=== PATIENT | male | born 1995 | race Two or more races ===

== ENCOUNTER 2016-03-30 23:47 | Inpatient (IN) | payer MEDICAID ==
--- NOTE | 2016-03-31 00:25 | ED Physician Chart ---
Chief Complaint/HPI - Patient Information Date Seen:: 03/31/16 Time Seen:: 00:18 Chief Complaint:: abnormal labs History of Present Illness:: pt states he believes he is basically healthy w no danelle hx. At his Mom's insistence he had a visit w a new PMD Friday where he had a routine lab. his Dr called him today and advised he come in for lab redraw since his platelets were abnormally low. pt reports no personal or family hx of blood dyscrasias. His father had juvenile DM. he has noticed some easier than usual bruising of his left bicep recently w no recall of trauma. he has no CP nor sob. 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 pt denies any drugs or herbal medications. pt says he has had HTN noted before here in ED several times over the last year but he never followed up w PMD as he was advised to do until Friday when he saw new Dr....it is unclear why BP med wasnt started friday ...pt thinks BP was nrml then.. no neuro changes Allergies:: Allergies Allergy/AdvReac Type Severity Reaction Status Date / Time No Known Allergies Allergy Verified 03/02/16 21:05 Vitals:: Vital Signs - 8 hr 03/31/16 00:03 Temp 97.9 F HR 97 RR 19 BP 170/107 O2 Sat % 99 Historian:: Patient Review of Systems - Review of Systems General/Constitutional: No fever, No chills, No weight loss, No weakness, No diaphoresis, No edema, No loss of appetite Skin: No skin lesions, No rash, No bruising Head: No headache, No light-headedness Eyes: No loss of vision, No pain, No diplopia ENT: No earache, No nasal drainage, No sore throat, No tinnitus Neck: No neck pain, No swelling, No thyromegaly, No stiffness, No mass noted Cardio Vascular: No chest pain, No palpitations, No PND, No orthopnea, No edema Pulmonary: No SOB, No cough, No sputum, No wheezing GI: No nausea, No vomiting, No diarrhea, No pain, No melena, No hematochezia, No constipation, No hematemesis G/U: No dysuria, No frequency, No hematuria Musculoskeletal: No bone or joint pain, No back pain, No muscle pain Endocrine: No polyuria, No polydipsia Psychiatric: No prior psych history, No depression, No anxiety, No suicidal ideation Hematopoietic: Bruising, No lymphadenopathy Allergic/Immuno: No urticaria, No angioedema Neurological: No syncope, No focal symptoms, No weakness, No paresthesia, No headache, No seizure, No dizziness, No confusion, No vertigo Past Medical History - Past Medical History Past Medical History: No significant medical hx, HTN (untxd HTN...pt has been notified of this by our ED staff multiple times but didnt perceive it as a real problem since he felt ok) Social History: Non Smoker, Alcohol, No Drug Use, Other (here w his MOM who raised hm by herself) Medication: None Family Medical History - Family Member Mother History Unknown: Yes Name:: Father, Mother Living Status: Still Living Hx Family Coronary Artery Disease: No Hx Family Congestive Heart Failure: No Hx Family Hypertension: No Hx Family Stroke: No Hx Family Diabetes: Yes Physical Exam - Physical Examination General/Constitutional: Awake, Well-developed, well-nourished, Alert, No distress, GCS 15, Non-toxic appearing, Ambulatory Other Gen/Cons comments:: 1 cut on scalp from shaving (pt shaves head nrmlly) 1.5 inch diameter old bruise on left lat-mid humerous region pt is awake/alert and attentive in nad. seems to have nrml strength. moist oral mucosa. elevated BP noted.... Head: Atraumatic Eyes: Lids, conjuctiva normal, PERRL, EOMI Other Eyes comments:: no conjunctival pallor. moist oral mucosa. Skin: Nl inspection, No rash, Well hydrated, No lymphadenopathy ENMT: External ears, nose nl, Nasal exam nl, Lips, teeth, gums nl Neck: Nontender, Full ROM w/o pain, No JVD, No nuchal rigidity, No bruit, No mass, No stridor Respiratory: Nl effort/Exclusion, Clear to Auscultation, No Wheeze/Rhonchi/Rales Cardio Vascular: RRR, No murmur, gallop, rubs, NL S1 S2 GI: No tenderness/rebounding/guarding, No organomegaly, No hernia, Normal BS's, Nondistended, No mass/bruits, No McBurney tenderness : No CVA tenderness Extremities: No tenderness or effusion, Full ROM, normal strength in all extremities, No edema, Normal digits & nails Neuro/Psych: Alert/oriented, DTR's symmetric, Normal sensory exam, Normal motor strength, Judgement/insight normal, Mood normal, Normal gait, No focal deficits Misc: normal gait, Normal back, No paraspinal tenderness Labs/Radiology/EKG Results - Lab Results Results: Laboratory Tests 03/31/16 03/31/16 03/31/16 00:25 00:25 00:25 WBC 9.4 RBC 5.31 Hgb 15.5 Hct 44.4 MCV 83.5 MCH 29.2 MCHC Differential 34.9 RDW 12.0 Plt Count 32 L MPV 7.2 Band Neutrophils % 1 Neutrophils (Manual) 63 Lymphocytes 30 Monocytes 4 Eosinophils 2 Platelet Estimate DECREASED PLATELETS PT 10.0 INR 1.01 PTT (Actin FS) 32.2 Sodium 135 L Potassium 3.7 Chloride 106 Carbon Dioxide 25.3 Anion Gap 7.4 BUN 22 Creatinine 0.8 Est GFR ( Amer) > 60.0 Est GFR (Non-Af Amer) > 60.0 BUN/Creatinine Ratio 27.5 Glucose 109 H Calcium 8.9 Total Bilirubin 0.2 L AST 28 ALT 22 Alkaline Phosphatase 64 Total Protein 6.0 Albumin 3.6 L Globulin 2.4 Albumin/Globulin Ratio 1.5 Assessment - Assessment Critical Care Time: 70 Excludes all billable procedures: Yes This condition life threatening/high prob of deterioration: Yes Assessment/Comments:: pt w severe untxd HTN and thrombocytopenia...at EXTREME risk of a acute CVA. Interventions include lowering of BP and transfusion of plts.. ED Septic Shock - . Is Septic Shock (SBP<90, OR Lactate>4 mmol\L) present?: No - <6hrs of presentation: Vital Signs: Vital Signs - 8 hr 03/31/16 00:03 Temp 97.9 F HR 97 RR 19 BP 170/107 O2 Sat % 99 Reassessment (Disposition) - Reassessment Reassessment Condition:: Improved - Diagnosis Diagnosis:: 1 severe thrombocytopenia of unclear etiology with associated spontaneous bruising and microscopic hematuria 2 severe untreated HTN - Aftercare/Follow up Instructions Notes:: Dr Jacob was human resources compensation analyst but was unreachable so after several attempt staff contacted Dr Amaro who is admitting pt platelet transfusion was ordered. pt received catapres for sev HTN - Patient Disposition Admitted to:: Telemetry Condition at Disposition:: Critical, Improved ED Discharge Plan - Patient Disposition Admit/Discharge/Transfer: Acute Care w/in this hosp
[2016-03-31 00:38] LABS: HEMATOCRIT 44.4 % (39.0-49.0); HEMOGLOBIN 15.5 gm/dL (13.2-17.3); MEAN CELL VOLUME 83.5 fl (80-99); MEAN CORPUSCULAR HEMOGLOBIN 29.2 pg (26.0-30.0); MEAN CORPUSCULAR HGB CONC 34.9 pg (28.0-36.0); MEAN PLATELET VOLUME 7.2 fl; PLATELET COUNT 32 Th/cmm (150-400); RED BLOOD COUNT 5.31 Mil/cmm (4.30-5.70)
[2016-03-31 00:53] LABS: INR 1.01 (0.5-1.4)
[2016-03-31 00:55] LABS: ALB/GLOB RATIO 1.5 (1.0-1.8); ALKALINE PHOSPHATASE 64 U/L (34-104); ANION GAP 7.4 (7.0-16.0); BILIRUBIN,TOTAL 0.2 mg/dL (0.3-1.0); BUN - UREA NITROGEN 22 mg/dL (7-25); BUN/CREATININE RATIO 27.5; CALCIUM SERUM 8.9 mg/dL (8.6-10.3); CARBON DIOXIDE 25.3 mEq/L (21.0-31.0); CHLORIDE 106 mEq/L (98-107); CREATININE - SERUM 0.8 mg/dL (0.7-1.3); GLUCOSE 109 mg/dL (70-105); POTASSIUM SERUM 3.7 mEq/L (3.5-5.1); SGOT 28 U/L (13-39); SGPT/ALT 22 U/L (7-52); SODIUM SERUM 135 mEq/L (136-145)
[2016-03-31 00:59] LABS: BAND NEUTROPHILE 1 % (0-10); EOSINOPHIL 2 % (0-5); NEUTROPHILS 63 % (40-80); TOTAL CELLS COUNTED 100
[2016-03-31 01:00] LABS: PLATELET ESTIMATE DECREASED PLATELETS (NORMAL)
[2016-03-31 01:01] LABS: WHITE BLOOD COUNT 9.4 Th/cmm (4.8-10.8)
[2016-03-31 01:41] LABS: AMPHETAMINE URINE NEGATIVE (NEGATIVE); BARBITURATES URINE NEGATIVE (NEGATIVE)
[2016-03-31 01:42] LABS: URINE BILIRUBIN NEGATIVE (NEGATIVE); URINE BLOOD LARGE (NEGATIVE); URINE COLOR YELLOW; URINE GLUCOSE (UA) NEGATIVE (NEGATIVE); URINE KETONE NEGATIVE (NEGATIVE); URINE PROTEIN >300 mg/dL (NEGATIVE); URINE UROBILINOGEN 0.2 E.U./dL (0.2 - 1.0)
[2016-03-31 01:43] LABS: URINE BACTERIA OCCASIONAL /hpf (NONE SEEN); URINE EPITHELIAL CELLS OCCASIONAL /lpf (FEW); URINE WBC 0-2 /hpf (0-5)
[2016-03-31] MEDS ORDERED: Maalox 30 mL Cup PO PRN (11:24)
[2016-03-31] MEDS ORDERED: Ipratropium Neb 0.5 mg/2.5 mL UD IH PRN (11:24)
[2016-03-31] MEDS ORDERED: Albuterol Nebulizer 2.5mg/3mL IH PRN (11:24)
[2016-03-31] MEDS: D5-0.45NS 1,000 ML IV SCH (12:51)
[2016-04-01] MEDS: D5-0.45NS 1,000 ML IV SCH ×2 (00:04→10:27)
[2016-04-01 06:10] LABS: HEMATOCRIT 45.3 % (39.0-49.0); HEMOGLOBIN 15.7 gm/dL (13.2-17.3); MEAN CELL VOLUME 83.1 fl (80-99); MEAN CORPUSCULAR HEMOGLOBIN 28.7 pg (26.0-30.0); MEAN CORPUSCULAR HGB CONC 34.6 pg (28.0-36.0); MEAN PLATELET VOLUME 7.6 fl; RED BLOOD COUNT 5.46 Mil/cmm (4.30-5.70); WHITE BLOOD COUNT 10.1 Th/cmm (4.8-10.8)
[2016-04-01 06:40] LABS: PROTHROMBIN TIME (TEST) 9.9 SECONDS (9.5-11.5)
[2016-04-01 06:44] LABS: ALB/GLOB RATIO 1.4 (1.0-1.8); ALKALINE PHOSPHATASE 61 U/L (34-104); ANION GAP 1.2 (7.0-16.0); BILIRUBIN,DIRECT 0.13 mg/dL (0.0-0.2); BILIRUBIN,TOTAL 0.5 mg/dL (0.3-1.0); BUN - UREA NITROGEN 17 mg/dL (7-25); CARBON DIOXIDE 24.6 mEq/L (21.0-31.0); CHLORIDE 110 mEq/L (98-107); GLUCOSE 96 mg/dL (70-105); POTASSIUM SERUM 3.8 mEq/L (3.5-5.1); SGOT 31 U/L (13-39); SGPT/ALT 20 U/L (7-52); SODIUM SERUM 132 mEq/L (136-145)
[2016-04-01 08:13] LABS: TSH 2.2 uIU/ml (0.34-5.60)
[2016-04-01 10:22] LABS: PLATELET COUNT 21 Th/cmm (150-400)
[2016-04-01 10:28] LABS: BASOPHIL 1 % (0-3); EOSINOPHIL 2 % (0-5); NEUTROPHILS 37 % (40-80); TOTAL CELLS COUNTED 100
[2016-04-01 10:29] LABS: PLATELET ESTIMATE DECREASED PLATELETS (NORMAL); PLATELET MORPHOLOGY GIANT PLATELETS SEEN (NORMAL)
[2016-04-01] MEDS ORDERED: Dexamethasone Sodium Phos 4 mg/mL Vial IVP SCH (10:30)
--- NOTE | 2016-04-01 10:48 | History & Physical ---
CHIEF COMPLAINT: Abnormal labs with low platelets. HISTORY OF PRESENT ILLNESS: This is a 20-year-old male with no significant past medical history was admitted through the ER secondary to abnormal blood test with platelets of ____. The patient was seen at the clinic with ____. The patient denies any abnormal bleeding. No chest pain or shortness of breath. PAST MEDICAL HISTORY: As mentioned in the history of present illness. PAST SURGICAL HISTORY: ____. ALLERGIES: No known drug allergies. MEDICATIONS: ____. FAMILY HISTORY: ____. SOCIAL HISTORY: Smokes on occasions, drinks on occasions, uses marijuana, student, ____ single. REVIEW OF SYSTEMS: GENERAL: The patient denies ____. HEENT: No blurred vision. NECK: No neck pain. LUNGS: ____ COPD or asthma. HEART: The patient has ____. ABDOMEN: No nausea, vomiting or abdominal pain. GENITOURINARY: The patient denies increased frequency or dysuria. NEUROLOGIC: No headaches or seizures. PSYCHIATRIC: As stated above. PHYSICAL EXAMINATION: VITAL SIGNS: Blood pressure 134/____, respirations 18, pulse 67. GENERAL: Well-developed young male in no acute distress. NECK: Supple. No mass. LUNGS: Clear to auscultation. CARDIOVASCULAR: Heart regular rate and rhythm without appreciable murmurs. ABDOMEN: Soft and nontender. EXTREMITIES: No clubbing, cyanosis or edema. No petechia. NEUROLOGIC: Nonfocal. LABORATORY DATA: WBC 9.5, hemoglobin 15, platelets ____. Sodium ____, potassium 3.7, BUN ____, creatinine 0.8, blood sugar 108. ____ protein, 10 rbc's plus ____. ASSESSMENT: Acute thrombocytopenia, hyponatremia, proteinuria. PLAN: We will work the patient up for thrombocytopenia. Abdominal, liver, and spleen ultrasound will be ordered. We will refer the patient to Nephrology, avoid ____. JOB# [id number]
--- NOTE | 2016-04-01 10:59 | Diagnostic Imaging Report ---
Abdominal ultrasound HISTORY: Pain The liver exhibits a homogeneous parenchyma. No focal lesions. The gallbladder appears normal. No calculi are seen. No biliary dilatation. There is incomplete visualization of the pancreas due to bowel gas. The kidneys appear normal bilaterally. The spleen is normal in size (10.5 cm length). No other retroperitoneal or intra-abdominal abnormalities. IMPRESSION: Negative examination
[2016-04-01] MEDS ORDERED: Dexamethasone Sodium Phos 10 mg/mL PF Vial IVP SCH (11:15)
--- NOTE | 2016-04-01 12:28 | General Progress Note ---
Subjective - Review of Systems Service Date: 04/01/16 (NO COMPLAINTS) Events since last encounter: seen by hematology started on steroids Objective - Results Result Diagrams: 04/01/16 05:24 04/01/16 05:24 Recent Labs: Laboratory Last Values WBC 10.1 Th/cmm (4.8-10.8) 04/01/16 05:24 RBC 5.46 Mil/cmm (4.30-5.70) 04/01/16 05:24 Hgb 15.7 gm/dL (13.2-17.3) 04/01/16 05:24 Hct 45.3 % (39.0-49.0) 04/01/16 05:24 MCV 83.1 fl (80-99) 04/01/16 05:24 MCH 28.7 pg (26.0-30.0) 04/01/16 05:24 MCHC Differential 34.6 pg (28.0-36.0) 04/01/16 05:24 RDW 12.0 % (11.5-20.0) 04/01/16 05:24 Plt Count 21 Th/cmm (150-400) L* 04/01/16 05:24 MPV 7.6 fl 04/01/16 05:24 Band Neutrophils % 1 % (0-10) 03/31/16 00:25 Neutrophils (Manual) 37 % (40-80) L 04/01/16 05:24 Lymphocytes 44 % (20-50) 04/01/16 05:24 Monocytes 13 % (2-10) H 04/01/16 05:24 Eosinophils 2 % (0-5) 04/01/16 05:24 Basophils 1 % (0-3) 04/01/16 05:24 Atypical Lymphocytes 3 % 04/01/16 05:24 Platelet Estimate DECREASED PLATELETS (NORMAL) 04/01/16 05:24 Platelet Morphology GIANT PLATELETS SEEN (NORMAL) 04/01/16 05:24 RBC Morph Micro Appear NORMAL (NORMAL) 04/01/16 05:24 ESR 8 mm/hr (0-20) 04/01/16 05:24 PT 9.9 SECONDS (9.5-11.5) 04/01/16 05:24 INR 1.00 (0.5-1.4) 04/01/16 05:24 PTT (Actin FS) 33.8 SECONDS (26.0-38.0) 04/01/16 05:24 Sodium 132 mEq/L (136-145) L 04/01/16 05:24 Potassium 3.8 mEq/L (3.5-5.1) 04/01/16 05:24 Chloride 110 mEq/L (98-107) H 04/01/16 05:24 Carbon Dioxide 24.6 mEq/L (21.0-31.0) 04/01/16 05:24 Anion Gap 1.2 (7.0-16.0) L 04/01/16 05:24 BUN 17 mg/dL (7-25) 04/01/16 05:24 Creatinine 1.0 mg/dL (0.7-1.3) 04/01/16 05:24 Est GFR ( Amer) > 60.0 ml/min 04/01/16 05:24 Est GFR (Non-Af Amer) > 60.0 ml/min 04/01/16 05:24 BUN/Creatinine Ratio 17.0 04/01/16 05:24 Glucose 96 mg/dL (70-105) 04/01/16 05:24 Calcium 9.0 mg/dL (8.6-10.3) 04/01/16 05:24 Total Bilirubin 0.5 mg/dL (0.3-1.0) 04/01/16 05:24 Direct Bilirubin 0.13 mg/dL (0.0-0.2) 04/01/16 05:24 AST 31 U/L (13-39) 04/01/16 05:24 ALT 20 U/L (7-52) 04/01/16 05:24 Alkaline Phosphatase 61 U/L (34-104) 04/01/16 05:24 Ammonia 68 umol/L (16-53) H 04/01/16 05:24 Total Protein 6.1 gm/dL (6.0-8.3) 04/01/16 05:24 Albumin 3.6 gm/dL (4.2-5.5) L 04/01/16 05:24 Globulin 2.5 gm/dL 04/01/16 05:24 Albumin/Globulin Ratio 1.4 (1.0-1.8) 04/01/16 05:24 TSH 2.20 uIU/ml (0.34-5.60) 04/01/16 05:24 Urine Source CLEAN C 03/31/16 01:15 Urine Color YELLOW 03/31/16 01:15 Urine Clarity CLEAR (CLEAR) 03/31/16 01:15 Urine pH 6.0 03/31/16 01:15 Ur Specific [place] 1.025 (1.005-1.030) 03/31/16 01:15 Urine Protein >300 mg/dL (NEGATIVE) H 03/31/16 01:15 Urine Glucose (UA) NEGATIVE mg/dL (NEGATIVE) 03/31/16 01:15 Urine Ketones NEGATIVE mg/dL (NEGATIVE) 03/31/16 01:15 Urine Blood LARGE (NEGATIVE) H 03/31/16 01:15 Urine Nitrate NEGATIVE (NEGATIVE) 03/31/16 01:15 Urine Bilirubin NEGATIVE (NEGATIVE) 03/31/16 01:15 Urine Urobilinogen 0.2 E.U./dL (0.2 - 1.0) 03/31/16 01:15 Ur Leukocyte Esterase NEGATIVE (NEGATIVE) 03/31/16 01:15 Urine RBC 5-10 /hpf (0-5) H 03/31/16 01:15 Urine WBC 0-2 /hpf (0-5) 03/31/16 01:15 Ur Epithelial Cells OCCASIONAL /lpf (FEW) 03/31/16 01:15 Urine Bacteria OCCASIONAL /hpf (NONE SEEN) 03/31/16 01:15 Urine Opiates Screen NEGATIVE (NEGATIVE) 03/31/16 01:15 Ur Barbiturates Screen NEGATIVE (NEGATIVE) 03/31/16 01:15 Ur Phencyclidine Scrn NEGATIVE (NEGATIVE) 03/31/16 01:15 Amphetamines Screen NEGATIVE (NEGATIVE) 03/31/16 01:15 U Methamphetamines Scrn NEGATIVE (NEGATIVE) 03/31/16 01:15 U Benzodiazepines Scrn NEGATIVE (NEGATIVE) 03/31/16 01:15 U Cocaine Metab Screen NEGATIVE (NEGATIVE) 03/31/16 01:15 U Cannabinoids Screen POSITIVE (NEGATIVE) H 03/31/16 01:15 HIV 1&2 Antibody Screen NEGATIVE (NEG) 04/01/16 05:24 Blood Type O POSITIVE 03/31/16 00:25 Antibody Screen NEGATIVE 03/31/16 00:25 - Physical Exam Vitals and I&O: Vital Signs Temp 97.8 F 04/01/16 07:00 Pulse 64 04/01/16 10:25 Resp 18 04/01/16 07:40 BP 129/93 04/01/16 10:25 Pulse Ox 99 04/01/16 07:40 Intake & Output 03/31/16 04/01/16 04/01/16 18:59 06:59 18:59 Intake Total 900 1500 1000 Output Total 500 Balance 400 1500 1000 Intake: Intake, IV Amount 1000 1000 D5-0.45NS 1,000 ml @ 100 1000 1000 mls/hr IV .Q10H [facility] Rx#: [id number] Oral 900 500 Output: Urine 500 Other: # Voids 3 3 Active Medications: Current Medications Acetaminophen (Tylenol) 650 mg PO Q4HR PRN PRN Reason: Pain or Fever >101 Stop: 05/30/16 11:23 Al Hydrox/Mg Hydrox/Simethicone (Maalox) 30 ml PO Q6HR PRN PRN Reason: Constipation Stop: 05/30/16 11:23 Albuterol Sulfate (Albuterol 2.5mg/3ml Neb Ud) 2.5 mg IH Q2HR PRN PRN Reason: Shortness of Breath or Wheeze Stop: 05/30/16 11:23 Dexamethasone Sodium Phosphate (Decadron) 40 mg IVP NOW [facility] Stop: 04/04/16 10:31 Dextrose/Sodium Chloride (D5-0.45ns) 1,000 mls @ 100 mls/hr IV .Q10H [facility] Stop: 05/30/16 11:29 Last Admin: 04/01/16 10:27 Dose: 100 mls/hr Ipratropium [place] (Atrovent Neb 0.5mg/2.5ml) 0.5 mg IH Q2HR PRN PRN Reason: Shortness of Breath or Wheeze Stop: 05/30/16 11:23 Metoprolol Succinate (Toprol Xl) 25 mg PO BID [facility] Stop: 05/30/16 08:59 Last Admin: 04/01/16 10:25 Dose: 25 mg Ondansetron HCl (Zofran) 4 mg IV Q8H PRN PRN Reason: Nausea / Vomiting Stop: 05/30/16 11:23 Zolpidem Tartrate (Ambien) 10 mg PO HS PRN PRN Reason: Insomnia Stop: 05/30/16 11:23 General: Alert, Oriented x3, Cooperative Neck: Supple Cardiovascular: Regular rate Abdomen: Bowel sounds (normal) Assessment/Plan - Problem List Patient Problems: All Active Problems hypertension (Acute) proteinuria (Acute) thrombocytopenia (Acute) Laceration of finger (Active) S61.219A - Assessment Assessment: will switch bp meds fron beta block to shagufta inhibitor because of proteinuria
--- NOTE | 2016-04-01 12:32 | History & Physical ---
PATIENT IDENTIFICATION: A 20-year-old male. CHIEF COMPLAINT: I received a call from briana Hayes to go to Emergency Room. HISTORY OF PRESENT ILLNESS: A 20-year-old Turkish male with no significant medical history, went to see his primary careFreddy for physical exam and the patient had a blood drawn. He received call from his primary care physician, Dr. Jonn Plaza, on Friday the patient's platelet count is low. He was sent to the Emergency Room where the patient was seen ____. The patient was advised to be admitted because the patient was noted to have a low platelet with proteinuria and slightly elevated blood pressure. PAST MEDICAL HISTORY: None. MEDICATIONS AT HOME: None. ALLERGIES: None. SOCIAL HISTORY: He works in a restaurant. He will continue to smoke marijuana. The patient denies any smoking cigarettes. Denies using street drugs. The patient is not sexually active. FAMILY MEDICAL HISTORY: Possible for blood disease or kidney disease as per patient's account. REVIEW OF SYSTEMS: The patient currently denies any headache, blurred vision, double vision, dysphagia, odynophagia, runny nose, stuffy nose, fever, chills, cough, chest pain, shortness of breath, palpitation, dizziness, nausea, vomiting, diarrhea, dysuria, hematuria, hematochezia, melena. No history of any seizure or syncopal episode. No weight loss or weight gain. PHYSICAL EXAMINATION: GENERAL: The patient is alert, awake, oriented, lying in the bed without any acute distress. VITAL SIGNS: Temperature, currently temperature ____, pulse is 62, respiratory rate 18, blood pressure 136/85. SKIN: Warm to touch. HEENT: Normocephalic, atraumatic. Extraocular muscles are intact. Tongue was pink and coated. NECK: Supple, no JVD, no hepatojugular reflux. No lymphadenopathy, thyromegaly or carotid bruit. HEART: Both heart sounds are regular. No S3, no S4, no murmur. CHEST: Lung equal in expansion, no wheezing, no crackles. ABDOMEN: Soft. No guarding, no rigidity. Liver and spleen not palpable. No palpable mass. EXTREMITIES: No edema, no cyanosis, no clubbing. ____. No calf tenderness noted. NEUROLOGIC: Nonfocal. AVAILABLE DIAGNOSTIC DATA: White count of 9.4, hemoglobin of 15.5, platelet count of 32 with 63% neutrophils, 30% lymphocytes, 2% eosinophil. PT and PTT are normal. BUN and creatinine is 22 and 0.8 with blood sugar 109. Liver functions are normal. Albumin of 3.6. Urinalysis remarkable for protein of more than 300 with large blood is positive, but urine rbc was 5-10. Urine drug screen is positive for cannabinoids. CLINICAL IMPRESSION: A 20-year-old Turkish male with no significant past medical history noted to have thrombocytopenia of 32,000 associated with proteinuria. The patient also has some large amount of blood in his urine with rbc only 5-10 with positive cannabinoid screen. Differential diagnosis ____ thrombocytopenia and proteinuria needs to be ruled out for possible chronic infectious etiology like hepatitis C versus HIV. I do not see any possibilities of lymphoma or leukemia. There is always a possibility of B12 and folate deficiency in the presence of thrombocytopenia. Presence of proteinuria needs to be quantitated in order to have the definite diagnosis. If the patient has significant proteinuria, the patient may require biopsy of the proteinuria for definite diagnosis. The patient is not actively bleeding. I do not see any indication for platelet transfusion. PLAN: For this patient at this time, the patient has been admitted by Dr. Amaro. Hematology/Oncology and Nephrology consultation will be requested and will follow the recommendations. The patient will be given p.r.n. medication. The patient's care plan has been reviewed and discussed at this time with the patient. All of his questions have been answered. [facility]# [id number]
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
[2016-04-01] MEDS ORDERED: Dexamethasone Sodium Phos 40 MG in Sodium Chloride 0.9% 50 ML IV ONE (14:00)
[2016-04-01 16:52] LABS: SURFACE AREA 1.96
--- NOTE | 2016-04-01 22:24 | Admit Criteria Form ---
Admit Criteria Forms - Admit Criteria Diagnosis: HEMATOLOGY GRG Clinical Indications for Admission to Inpatient Care (Place 'X' for any and all applicable criteria): Hospital admission is needed for appropriate care of the patient because of ANY ONE of the following: [ ]I. Severe anemia indicated by ANY ONE of the following (1)(2) [ ]a) Altered mental status [ ]b) Syncope [ ]c) Other findings suggesting inadequate perfusion [ ]d) Chest pain [ ]e) Exertional dyspnea [ ]f) Treatment with transfusion or volume replacement is ineffective at resolving ANY ONE of the following [A]: [ ]i) Tachycardia for age [ ]ii) Orthostatic vital sign changes as indicated by ANY ONE of the following (3) [ ]1) Fall in SBP of 20 mm Hg or more 1 to 3 minutes after patient sits or stands from recumbent position [ ]2) Fall in DBP of 10 mm Hg or more 1 to 3 minutes after patient sits or stands from recumbent position [ ]II. High-risk febrile neutropenia [B] as indicated by ANY ONE of the following(4)(5) [ ]a) Hemodynamic instability [ ]b) Hypoxemia [ ]c) Tachypnea [ ]d) Altered mental status [ ]e) New onset abdominal pain [ ]f) New onset vomiting or diarrhea [ ]g) Pneumonia [ ]h) Profound neutropenia [C] anticipated to extend for more than 7 days [ ]i) Oral or gastrointestinal mucositis that interferes with swallowing or causes severe diarrhea [ ]j) Evidence of significant focal infection (eg, cellulitis, central line or catheter infection, perirectal abscess) [ ]k) Leukemia or lymphoma induction therapy [ ]l) Bone marrow transplant patient [ ]m) Renal insufficiency (eg, GFR of less than 30 mL/min/1.73m2 (0.5 mL/sec/1.73m2) [ ]n) Severe liver dysfunction (transaminase levels greater than 5 times normal) [ ]o) Platelet count less than 50,000/mm3 (50 x109/L)(6) [ ]p) [employer] Support[employer] [facility] in Cancer (MASCC) Risk Index score of < 21 [D] [ ]III. High-risk low platelet count as indicated by ANY ONE of the following(8) (9) [ ]a) Severe or life-threatening bleeding (eg, intracranial, major gastrointestinal, or extensive mucosal bleeding), with any reduced platelet count [ ]b) Platelet count less than 20,000/mm3 (20 x109/L) with any active bleeding [ ]c) Platelet count less than 10,000/mm3 (10 x109/L) with minor purpura or petechiae [ ]d) Platelet count less than 5000/mm3 (5 x109/L) [ ]e) Low platelet count with hemolytic anemia [X ]IV.Active hemolysis with high-risk findings, including ANY ONE of the following(2)(10)(11) [ ]a) Hematocrit less than 25% (0.25) [ ]b) Rapidly progressing anemia [ X]c) Thrombocytopenia(12)(13) [ ]d) Evidence of thrombosis or new renal insufficiency [ ]V. Bleeding disorder with high-risk features (eg, hemophilia, coagulopathy) as indicated by ANY ONE of the following (2)(14)(15) [ ]a) Central nervous system bleeding [ ]b) Retroperitoneal bleeding [ ]c) Retropharyngeal bleeding [ ]d) Gastrointestinal bleeding (22) [ ]e) Purpura [ ]f) Disseminated intravascular coagulation(23) [ ]g) Major trauma [ ]h) Deep laceration [ ]i) Head trauma [ ]j) Any trauma with internal hematoma (eg, retroperitoneal, ocular) [ ]k) Failed outpatient management [ ]. Severe over-anticoagulation or high-risk situation as indicated by ANY ONE of the following(24)(25) [ ]a) Active bleeding [ ]b) International normalized ratio 5 or greater and rapid reversal needed [ ]c) International normalized ratio 9 or greater [ ]VII. Congenital immunodeficiency states with severe morbidity as indicated by ANY ONE of the following(26)(27) [ ]a) Severe infection [ ]b) Bone marrow transplant needed (Also use Medical Oncology GRG) [ ]VIII. Hyperviscosity syndrome with high-risk indicators indicated by ANY ONE of the following (2)(28)(29)(30)(31) [ ]a) Polycythemia vera with hematocrit greater than 60% (0.60) [ ]b) Elevated platelet count associated with thrombosis, bleeding, or life-threatening organ dysfunction [ ]c) Severe signs or symptoms from elevated red cell, white cell, or protein levels, including ANY ONE of the following: [ ]i) Mental status change [ ]ii) Dyspnea [ ]iii) Chest x-ray infiltrate [ ]iv) Visual changes [ ]v) Retinal abnormalities [ ]vi) Neuromuscular symptoms [ ]vii) Suspected ischemia or thrombosis [ ]viii) Bleeding [ ]IX. Methemoglobinemia greater than 15% (0.15) or severe symptoms persist after emergency treatment (32)(33) [ ]X. Spleen trauma with blood loss or other need for acute (medical) treatment (34) [ ]XI. Hematology condition and ALL of the following: [ ]a) Symptom or finding for which emergency and observation care have failed or are not considered appropriate (Also use General Criteria: Observation Care as appropriate) [ ]b) Presence of ANY ONE of the following: [ ]i) A General Admission Criteria [ ]ii) A Pediatric General Admission Criteria The original [facility] content created by [facility] has been revised. The portions of the content which have been revised are identified through the use of italic text or in bold, and [facility] has neither reviewed nor approved the modified material. All other unmodified content is copyright [facility]. Please see references footnoted in the original [facility] edition 2016 Admit Criteria Met?: Yes
[2016-04-02] MEDS: D5-0.45NS 1,000 ML IV SCH (06:27)
[2016-04-02 10:16] LABS: FOLIC ACID 12.6 ng/mL (>3.0)
[2016-04-02 10:32] LABS: HEMATOCRIT 47.5 % (39.0-49.0); HEMOGLOBIN 16.1 gm/dL (13.2-17.3); MEAN CELL VOLUME 84.8 fl (80-99); MEAN CORPUSCULAR HEMOGLOBIN 28.7 pg (26.0-30.0); MEAN CORPUSCULAR HGB CONC 33.9 pg (28.0-36.0); MEAN PLATELET VOLUME 9.1 fl; RED CELL DISTRIBUTION WIDTH 11.8 % (11.5-20.0)
[2016-04-02 10:56] LABS: PLATELET COUNT 66 Th/cmm (150-400); WHITE BLOOD COUNT 17.1 Th/cmm (4.8-10.8)
[2016-04-02 10:59] LABS: NEUTROPHILS 84 % (40-80); TOTAL CELLS COUNTED 100
[2016-04-02 11:00] LABS: PLATELET ESTIMATE DECREASED PLATELETS (NORMAL); PLATELET MORPHOLOGY GIANT PLATELETS SEEN (NORMAL)
[2016-04-02 14:25] LABS: HEP B CORE IGM Negative (Negative); HEP C ANTIBODY <0.1 s/co ratio (0.0-0.9)
--- NOTE | 2016-04-02 17:26 | Consultation ---
This is the 20 years old patient male here for thrombocytopenia ____ count noted on the skin examination, which was obtained on Friday. This patient was subsequently advised ____ and subsequently ____, which showed the thrombocytopenia and also noted that this patient ____. Denies shortness of breath. He states that he has sensation of occasional headache and floating sensation, which is aggravated last night ____ episodes of being upset or being apprehensive. He denied ____ history of any intake of medications [id number] or illicit drug history or high-power medication that he is taking ____. No history of hepatitis, no history of arthritis or ____ that this patient have. ALLERGIES: Negative. PERSONAL AND SOCIAL HISTORY: He is 20 years old , raised by single parent, the mother. FAMILY HISTORY: Positive for hypertension. He ____ no history of blood dyscrasia on this patient. He ____ diabetes. PREVIOUS MEDICAL HISTORY: This patient has associated hypertension for which he has been requested to be followed up by his primary care physician for workup. He remembers blood pressure is ____ systolic, was advised to be followed up by his primary care physician, they will follow up for ____ treatment with regard to the hypertension. He states that ____ he does not have any symptom, but he has occasional episode of coming ____ to the Emergency Room to be treated. REVIEW OF SYSTEMS: Complains of headache, occasional, on and off ____ require any episode of ____ any treatment. He had the sensation of like floating of his head especially when he gets up ____. No history of unusual facial rash. No history of ____. Negative for any hepatitis. Negative for any musculoskeletal disorder. PHYSICAL EXAMINATION: VITAL SIGNS: Blood pressure now is 145/98 although initially in the Emergency Room, his blood pressure is 117/____, respiratory rate of ____, temperature is 98.2. HEENT: Normocephalic, no evidence of percussion tenderness or extraocular dysfunction. No evidence of any diplopia. CHEST: Clear to auscultation, evidence of ecchymoses ____. ABDOMEN: Soft, bowel sounds are present, unable to delineate any definite mass noted. EXTREMITIES: No edema of both lower extremity. LABORATORY STUDIES: Reviewed and ____ specific gravity, greater than 300 ____ noted on microscopic, 5-10 red blood cells per high-power field, epithelial cells were also noted ____ occasional, no evidence of reported casts. Chemistry, 135 sodium, potassium ____, chloride 106, CO2 of 25, BUN of 22, creatinine of 0.8, 109 glucose, 6 total protein, albumin is 3.6, globulin is 2.4. Coagulation profile is normal, ____. Toxicology positive for cannabinoids ____. IMPRESSION AND PLAN: 1. Thrombocytopenia of unclear etiology with no associated ____ hematocrit and white blood cell count. 2. Proteinuria in this patient, is likely be related to thrombocytopenia. 3. Rule out the possibility of ____ on this patient, although he has got no ____ manifestations ____. 4. Underlying ____ and ____ history of an underlying essential hypertension, may or may not be related to the presenting manifestation on this patient. The studies were requested including autoimmune ____. ____ of this patient ____. JOB# [id number]
[2016-04-03 05:16] LABS: A/G RATIO 1.3 (0.7-1.7); ALBUMIN 3.3 g/dL (2.9-4.4); ALPHA-1-GLOBULIN 0.3 g/dL (0.0-0.4); BETA GLOBULIN 0.9 g/dL (0.7-1.3); GAMMA GLOBULIN 0.6 g/dL (0.4-1.8); GLOBULIN, TOTAL 2.6 g/dL (2.2-3.9); M-SPIKE Not Observed g/dL (Not Observed); PROTEIN, TOTAL, SERUM 5.9 g/dL (6.0-8.5)
[2016-04-03 07:03] LABS: ALB/GLOB RATIO 1.6 (1.0-1.8); ALKALINE PHOSPHATASE 71 U/L (34-104); ANION GAP 7.9 (7.0-16.0); BILIRUBIN,TOTAL 0.3 mg/dL (0.3-1.0); BUN - UREA NITROGEN 23 mg/dL (7-25); BUN/CREATININE RATIO 19.2; CALCIUM SERUM 9.2 mg/dL (8.6-10.3); CARBON DIOXIDE 26.2 mEq/L (21.0-31.0); CHLORIDE 107 mEq/L (98-107); CREATININE - SERUM 1.2 mg/dL (0.7-1.3); GLUCOSE 95 mg/dL (70-105); POTASSIUM SERUM 4.1 mEq/L (3.5-5.1); SGOT 32 U/L (13-39); SGPT/ALT 26 U/L (7-52); SODIUM SERUM 137 mEq/L (136-145)
[2016-04-04 05:29] LABS: HEMOGLOBIN 14.5 gm/dL (13.2-17.3); MEAN CELL VOLUME 83.8 fl (80-99); MEAN CORPUSCULAR HEMOGLOBIN 28.8 pg (26.0-30.0); MEAN CORPUSCULAR HGB CONC 34.4 pg (28.0-36.0); MEAN PLATELET VOLUME 7.8 fl; RED BLOOD COUNT 5.05 Mil/cmm (4.30-5.70); RED CELL DISTRIBUTION WIDTH 12.1 % (11.5-20.0)
[2016-04-04 05:31] LABS: WHITE BLOOD COUNT 12.5 Th/cmm (4.8-10.8)
[2016-04-04 05:32] LABS: HEMATOCRIT 42.3 % (39.0-49.0); PLATELET COUNT 48 Th/cmm (150-400)
[2016-04-04 05:40] LABS: ANION GAP 8.1 (7.0-16.0); BUN - UREA NITROGEN 21 mg/dL (7-25); BUN/CREATININE RATIO 16.2; CALCIUM SERUM 8.8 mg/dL (8.6-10.3); CHLORIDE 107 mEq/L (98-107); CREATININE - SERUM 1.3 mg/dL (0.7-1.3); GLUCOSE 92 mg/dL (70-105); POTASSIUM SERUM 4.1 mEq/L (3.5-5.1); SODIUM SERUM 139 mEq/L (136-145)
[2016-04-04 08:39] LABS: BASOPHIL 1 % (0-3); EOSINOPHIL 2 % (0-5); NEUTROPHILS 45 % (40-80); TOTAL CELLS COUNTED 100
[2016-04-04 08:40] LABS: PLATELET ESTIMATE DECREASED PLATELETS (NORMAL); PLATELET MORPHOLOGY PLATELET CLUMPS SEEN (NORMAL)
--- NOTE | 2016-04-05 12:57 | General Progress Note ---
Subjective - Review of Systems Service Date: 04/05/16 Subjective: alert, ambulating, no bledsoe Objective - Results Result Diagrams: 04/04/16 04:50 04/04/16 04:50 Recent Labs: Laboratory Last Values WBC 12.5 Th/cmm (4.8-10.8) H D 04/04/16 04:50 RBC 5.05 Mil/cmm (4.30-5.70) 04/04/16 04:50 Hgb 14.5 gm/dL (13.2-17.3) 04/04/16 04:50 Hct 42.3 % (39.0-49.0) D 04/04/16 04:50 MCV 83.8 fl (80-99) 04/04/16 04:50 MCH 28.8 pg (26.0-30.0) 04/04/16 04:50 MCHC Differential 34.4 pg (28.0-36.0) 04/04/16 04:50 RDW 12.1 % (11.5-20.0) 04/04/16 04:50 Plt Count 48 Th/cmm (150-400) L D 04/04/16 04:50 MPV 7.8 fl 04/04/16 04:50 Band Neutrophils % 1 % (0-10) 03/31/16 00:25 Neutrophils (Manual) 45 % (40-80) 04/04/16 04:50 Lymphocytes 45 % (20-50) 04/04/16 04:50 Monocytes 7 % (2-10) 04/04/16 04:50 Eosinophils 2 % (0-5) 04/04/16 04:50 Basophils 1 % (0-3) 04/04/16 04:50 Atypical Lymphocytes 3 % 04/01/16 05:24 Platelet Estimate DECREASED PLATELETS (NORMAL) 04/04/16 04:50 Platelet Morphology PLATELET CLUMPS SEEN (NORMAL) 04/04/16 04:50 RBC Morph Micro Appear NORMAL (NORMAL) 04/04/16 04:50 ESR 8 mm/hr (0-20) 04/01/16 05:24 PT 9.9 SECONDS (9.5-11.5) 04/01/16 05:24 INR 1.00 (0.5-1.4) 04/01/16 05:24 PTT (Actin FS) 33.8 SECONDS (26.0-38.0) 04/01/16 05:24 Sodium 139 mEq/L (136-145) 04/04/16 04:50 Potassium 4.1 mEq/L (3.5-5.1) 04/04/16 04:50 Chloride 107 mEq/L (98-107) 04/04/16 04:50 Carbon Dioxide 28.0 mEq/L (21.0-31.0) 04/04/16 04:50 Anion Gap 8.1 (7.0-16.0) 04/04/16 04:50 BUN 21 mg/dL (7-25) 04/04/16 04:50 Creatinine 1.3 mg/dL (0.7-1.3) 04/04/16 04:50 Est GFR ( Amer) > 60.0 ml/min (>90) 04/04/16 04:50 Est GFR (Non-Af Amer) > 60.0 ml/min 04/04/16 04:50 BUN/Creatinine Ratio 16.2 04/04/16 04:50 Glucose 92 mg/dL (70-105) 04/04/16 04:50 Calcium 8.8 mg/dL (8.6-10.3) 04/04/16 04:50 Total Bilirubin 0.3 mg/dL (0.3-1.0) 04/03/16 05:35 Direct Bilirubin 0.13 mg/dL (0.0-0.2) 04/01/16 05:24 AST 32 U/L (13-39) 04/03/16 05:35 ALT 26 U/L (7-52) 04/03/16 05:35 Alkaline Phosphatase 71 U/L (34-104) 04/03/16 05:35 Ammonia 68 umol/L (16-53) H 04/01/16 05:24 C-Reactive Protein < 0.20 mg/dL (0.00-1.00) 04/01/16 05:24 Total Protein 6.2 gm/dL (6.0-8.3) 04/03/16 05:35 Albumin 3.8 gm/dL (4.2-5.5) L 04/03/16 05:35 Globulin 2.4 gm/dL 04/03/16 05:35 Albumin/Globulin Ratio 1.6 (1.0-1.8) 04/03/16 05:35 Gwqpo-6-Vvumyejhe 0.3 g/dL (0.0-0.4) 04/01/16 12:15 Onczk-3-Nhrpjombi 0.8 g/dL (0.4-1.0) 04/01/16 12:15 Beta Globulins 0.9 g/dL (0.7-1.3) 04/01/16 12:15 Gamma Globulins 0.6 g/dL (0.4-1.8) 04/01/16 12:15 M-Zachary Not Observed g/dL (Not Observed) 04/01/16 12:15 PEP Note (()) 04/01/16 12:15 Vitamin B12 482 pg/mL (211-946) 04/01/16 05:24 Folic Acid 12.6 ng/mL (>3.0) 04/01/16 05:24 TSH 2.20 uIU/ml (0.34-5.60) 04/01/16 05:24 Urine Source CLEAN C 03/31/16 01:15 Urine Color YELLOW 03/31/16 01:15 Urine Clarity CLEAR (CLEAR) 03/31/16 01:15 Urine pH 6.0 03/31/16 01:15 Ur Specific [place] 1.025 (1.005-1.030) 03/31/16 01:15 Urine Protein >300 mg/dL (NEGATIVE) H 03/31/16 01:15 Urine Glucose (UA) NEGATIVE mg/dL (NEGATIVE) 03/31/16 01:15 Urine Ketones NEGATIVE mg/dL (NEGATIVE) 03/31/16 01:15 Urine Blood LARGE (NEGATIVE) H 03/31/16 01:15 Urine Nitrate NEGATIVE (NEGATIVE) 03/31/16 01:15 Urine Bilirubin NEGATIVE (NEGATIVE) 03/31/16 01:15 Urine Urobilinogen 0.2 E.U./dL (0.2 - 1.0) 03/31/16 01:15 Ur Leukocyte Esterase NEGATIVE (NEGATIVE) 03/31/16 01:15 Urine RBC 5-10 /hpf (0-5) H 03/31/16 01:15 Urine WBC 0-2 /hpf (0-5) 03/31/16 01:15 Ur Epithelial Cells OCCASIONAL /lpf (FEW) 03/31/16 01:15 Urine Bacteria OCCASIONAL /hpf (NONE SEEN) 03/31/16 01:15 Urine Myoglobin 6 ng/mL (0-13) 04/02/16 07:30 U Random Total Protein 190.0 mg/dL 04/01/16 15:00 Urine Collection Time 24 hours 04/01/16 15:00 Urine Total Volume 4800 ml 04/01/16 15:00 Urine Creatinine 62.0 mg/dl (39.0-259.0) 04/01/16 15:00 Creat Clearance 24 Hr 183 ml/min (97.00-137.00) H 04/01/16 15:00 U Tot Protein 24h, Calc 9120.0 mg/24 hr (0-165) H 04/01/16 15:00 U Protein Electrophores SEE SEPARATE REPORT 04/01/16 15:00 Body Surface Area 1.96 04/01/16 15:00 Urine Opiates Screen NEGATIVE (NEGATIVE) 03/31/16 01:15 Ur Barbiturates Screen NEGATIVE (NEGATIVE) 03/31/16 01:15 Ur Phencyclidine Scrn NEGATIVE (NEGATIVE) 03/31/16 01:15 Amphetamines Screen NEGATIVE (NEGATIVE) 03/31/16 01:15 U Methamphetamines Scrn NEGATIVE (NEGATIVE) 03/31/16 01:15 U Benzodiazepines Scrn NEGATIVE (NEGATIVE) 03/31/16 01:15 U Cocaine Metab Screen NEGATIVE (NEGATIVE) 03/31/16 01:15 U Cannabinoids Screen POSITIVE (NEGATIVE) H 03/31/16 01:15 JOHANNA Screen Negative 03/31/16 00:25 Double Strand DNA Ab 3 IU/mL (0-9) 04/01/16 05:24 T.pallidum Ab (FTA-ABS) Non Reactive (Non Reactive) 04/02/16 09:40 Hepatitis A IgM Ab Negative (Negative) 04/01/16 05:24 Hep Bs Antigen Negative (Negative) 04/01/16 05:24 Hep B Core IgM Ab Negative (Negative) 04/01/16 05:24 Hepatitis C Antibody <0.1 s/co ratio (0.0-0.9) 04/01/16 05:24 HIV 1&2 Antibody Screen NEGATIVE (NEG) 04/01/16 05:24 Anti-Streptolysin O Ab 57.2 IU/mL (0.0-200.0) 04/01/16 12:15 Blood Type O POSITIVE 03/31/16 00:25 Antibody Screen NEGATIVE 03/31/16 00:25 - Physical Exam Vitals and I&O: Vital Signs Temp 97.9 F 04/05/16 12:06 Pulse 92 04/05/16 12:06 Resp 19 04/05/16 12:06 BP 141/96 04/05/16 12:06 Pulse Ox 100 04/05/16 12:06 Intake & Output 04/04/16 04/05/16 04/05/16 18:59 06:59 18:59 Intake Total 400 Balance 400 Intake: Oral 400 Active Medications: Current Medications Acetaminophen (Tylenol) 650 mg PO Q4HR PRN PRN Reason: Pain or Fever >101 Stop: 05/30/16 11:23 Last Admin: 04/02/16 21:45 Dose: 650 mg Al Hydrox/Mg Hydrox/Simethicone (Maalox) 30 ml PO Q6HR PRN PRN Reason: Constipation Stop: 05/30/16 11:23 Albuterol Sulfate (Albuterol 2.5mg/3ml Neb Ud) 2.5 mg IH Q2HR PRN PRN Reason: Shortness of Breath or Wheeze Stop: 05/30/16 11:23 Ipratropium [place] (Atrovent Neb 0.5mg/2.5ml) 0.5 mg IH Q2HR PRN PRN Reason: Shortness of Breath or Wheeze Stop: 05/30/16 11:23 Lisinopril (Zestril) 10 mg PO DAILY FABIANA Stop: 06/01/16 08:59 Last Admin: 04/05/16 08:18 Dose: 10 mg Ondansetron HCl (Zofran) 4 mg IV Q8H PRN PRN Reason: Nausea / Vomiting Stop: 05/30/16 11:23 Zolpidem Tartrate (Ambien) 10 mg PO HS PRN PRN Reason: Insomnia Stop: 05/30/16 11:23 Last Admin: 04/05/16 00:03 Dose: 10 mg General: Alert, No acute distress HEENT: Atraumatic, EOMI, Mucous membr. moist/pink Neck: Supple, +2 carotid pulse wo bruit Cardiovascular: Regular rate, Normal S1, Normal S2 Lungs: Clear to auscultation Abdomen: Bowel sounds, Soft Extremities: no Edema Neurological: Strength at 5/5 X4 ext, Sensation intact Skin: no Rash Psych/Mental Status: Mental status NL, Mood NL Assessment/Plan - Problem List Patient Problems: All Active Problems hypertension (Acute) proteinuria (Acute) thrombocytopenia (Acute) Laceration of finger (Active) S61.219A - Assessment Assessment: nephrotic range proteinuria thrombocytopenia ess htn (+) RPR
--- NOTE | 2016-04-06 12:00 | General Progress Note ---
Subjective - Review of Systems Service Date: 04/06/16 Subjective: alert, ambulating, no bledsoe Objective - Results Result Diagrams: 04/04/16 04:50 04/04/16 04:50 Recent Labs: Laboratory Last Values WBC 12.5 Th/cmm (4.8-10.8) H D 04/04/16 04:50 RBC 5.05 Mil/cmm (4.30-5.70) 04/04/16 04:50 Hgb 14.5 gm/dL (13.2-17.3) 04/04/16 04:50 Hct 42.3 % (39.0-49.0) D 04/04/16 04:50 MCV 83.8 fl (80-99) 04/04/16 04:50 MCH 28.8 pg (26.0-30.0) 04/04/16 04:50 MCHC Differential 34.4 pg (28.0-36.0) 04/04/16 04:50 RDW 12.1 % (11.5-20.0) 04/04/16 04:50 Plt Count 48 Th/cmm (150-400) L D 04/04/16 04:50 MPV 7.8 fl 04/04/16 04:50 Band Neutrophils % 1 % (0-10) 03/31/16 00:25 Neutrophils (Manual) 45 % (40-80) 04/04/16 04:50 Lymphocytes 45 % (20-50) 04/04/16 04:50 Monocytes 7 % (2-10) 04/04/16 04:50 Eosinophils 2 % (0-5) 04/04/16 04:50 Basophils 1 % (0-3) 04/04/16 04:50 Atypical Lymphocytes 3 % 04/01/16 05:24 Platelet Estimate DECREASED PLATELETS (NORMAL) 04/04/16 04:50 Platelet Morphology PLATELET CLUMPS SEEN (NORMAL) 04/04/16 04:50 RBC Morph Micro Appear NORMAL (NORMAL) 04/04/16 04:50 ESR 8 mm/hr (0-20) 04/01/16 05:24 PT 9.9 SECONDS (9.5-11.5) 04/01/16 05:24 INR 1.00 (0.5-1.4) 04/01/16 05:24 PTT (Actin FS) 33.8 SECONDS (26.0-38.0) 04/01/16 05:24 Sodium 139 mEq/L (136-145) 04/04/16 04:50 Potassium 4.1 mEq/L (3.5-5.1) 04/04/16 04:50 Chloride 107 mEq/L (98-107) 04/04/16 04:50 Carbon Dioxide 28.0 mEq/L (21.0-31.0) 04/04/16 04:50 Anion Gap 8.1 (7.0-16.0) 04/04/16 04:50 BUN 21 mg/dL (7-25) 04/04/16 04:50 Creatinine 1.3 mg/dL (0.7-1.3) 04/04/16 04:50 Est GFR ( Amer) > 60.0 ml/min (>90) 04/04/16 04:50 Est GFR (Non-Af Amer) > 60.0 ml/min 04/04/16 04:50 BUN/Creatinine Ratio 16.2 04/04/16 04:50 Glucose 92 mg/dL (70-105) 04/04/16 04:50 Calcium 8.8 mg/dL (8.6-10.3) 04/04/16 04:50 Total Bilirubin 0.3 mg/dL (0.3-1.0) 04/03/16 05:35 Direct Bilirubin 0.13 mg/dL (0.0-0.2) 04/01/16 05:24 AST 32 U/L (13-39) 04/03/16 05:35 ALT 26 U/L (7-52) 04/03/16 05:35 Alkaline Phosphatase 71 U/L (34-104) 04/03/16 05:35 Ammonia 68 umol/L (16-53) H 04/01/16 05:24 C-Reactive Protein < 0.20 mg/dL (0.00-1.00) 04/01/16 05:24 Total Protein 6.2 gm/dL (6.0-8.3) 04/03/16 05:35 Albumin 3.8 gm/dL (4.2-5.5) L 04/03/16 05:35 Globulin 2.4 gm/dL 04/03/16 05:35 Albumin/Globulin Ratio 1.6 (1.0-1.8) 04/03/16 05:35 Wleeg-9-Pbgsdnpaf 0.3 g/dL (0.0-0.4) 04/01/16 12:15 Mebta-3-Tnizewcqd 0.8 g/dL (0.4-1.0) 04/01/16 12:15 Beta Globulins 0.9 g/dL (0.7-1.3) 04/01/16 12:15 Gamma Globulins 0.6 g/dL (0.4-1.8) 04/01/16 12:15 M-Zachary Not Observed g/dL (Not Observed) 04/01/16 12:15 PEP Note (()) 04/01/16 12:15 Vitamin B12 482 pg/mL (211-946) 04/01/16 05:24 Folic Acid 12.6 ng/mL (>3.0) 04/01/16 05:24 TSH 2.20 uIU/ml (0.34-5.60) 04/01/16 05:24 Urine Source CLEAN C 03/31/16 01:15 Urine Color YELLOW 03/31/16 01:15 Urine Clarity CLEAR (CLEAR) 03/31/16 01:15 Urine pH 6.0 03/31/16 01:15 Ur Specific [place] 1.025 (1.005-1.030) 03/31/16 01:15 Urine Protein >300 mg/dL (NEGATIVE) H 03/31/16 01:15 Urine Glucose (UA) NEGATIVE mg/dL (NEGATIVE) 03/31/16 01:15 Urine Ketones NEGATIVE mg/dL (NEGATIVE) 03/31/16 01:15 Urine Blood LARGE (NEGATIVE) H 03/31/16 01:15 Urine Nitrate NEGATIVE (NEGATIVE) 03/31/16 01:15 Urine Bilirubin NEGATIVE (NEGATIVE) 03/31/16 01:15 Urine Urobilinogen 0.2 E.U./dL (0.2 - 1.0) 03/31/16 01:15 Ur Leukocyte Esterase NEGATIVE (NEGATIVE) 03/31/16 01:15 Urine RBC 5-10 /hpf (0-5) H 03/31/16 01:15 Urine WBC 0-2 /hpf (0-5) 03/31/16 01:15 Ur Epithelial Cells OCCASIONAL /lpf (FEW) 03/31/16 01:15 Urine Bacteria OCCASIONAL /hpf (NONE SEEN) 03/31/16 01:15 Urine Myoglobin 6 ng/mL (0-13) 04/02/16 07:30 U Random Total Protein 190.0 mg/dL 04/01/16 15:00 Urine Collection Time 24 hours 04/01/16 15:00 Urine Total Volume 4800 ml 04/01/16 15:00 Urine Creatinine 62.0 mg/dl (39.0-259.0) 04/01/16 15:00 Creat Clearance 24 Hr 183 ml/min (97.00-137.00) H 04/01/16 15:00 U Tot Protein 24h, Calc 9120.0 mg/24 hr (0-165) H 04/01/16 15:00 U Protein Electrophores SEE SEPARATE REPORT 04/01/16 15:00 Body Surface Area 1.96 04/01/16 15:00 Urine Opiates Screen NEGATIVE (NEGATIVE) 03/31/16 01:15 Ur Barbiturates Screen NEGATIVE (NEGATIVE) 03/31/16 01:15 Ur Phencyclidine Scrn NEGATIVE (NEGATIVE) 03/31/16 01:15 Amphetamines Screen NEGATIVE (NEGATIVE) 03/31/16 01:15 U Methamphetamines Scrn NEGATIVE (NEGATIVE) 03/31/16 01:15 U Benzodiazepines Scrn NEGATIVE (NEGATIVE) 03/31/16 01:15 U Cocaine Metab Screen NEGATIVE (NEGATIVE) 03/31/16 01:15 U Cannabinoids Screen POSITIVE (NEGATIVE) H 03/31/16 01:15 JOHANNA Screen Negative 03/31/16 00:25 Double Strand DNA Ab 3 IU/mL (0-9) 04/01/16 05:24 RPR Titer 04/02/16 09:40 RPR REACTIVE (NONREACTIVE) H 04/02/16 09:40 T.pallidum Ab (FTA-ABS) Non Reactive (Non Reactive) 04/02/16 09:40 Hepatitis A IgM Ab Negative (Negative) 04/01/16 05:24 Hep Bs Antigen Negative (Negative) 04/01/16 05:24 Hep B Core IgM Ab Negative (Negative) 04/01/16 05:24 Hepatitis C Antibody <0.1 s/co ratio (0.0-0.9) 04/01/16 05:24 HIV 1&2 Antibody Screen NEGATIVE (NEG) 04/01/16 05:24 Anti-Streptolysin O Ab 57.2 IU/mL (0.0-200.0) 04/01/16 12:15 Blood Type O POSITIVE 03/31/16 00:25 Antibody Screen NEGATIVE 03/31/16 00:25 - Physical Exam Vitals and I&O: Vital Signs Temp 97 F 04/06/16 08:00 Pulse 69 04/06/16 08:12 Resp 18 04/06/16 08:00 BP 158/113 04/06/16 08:12 Pulse Ox 100 04/06/16 08:00 Intake & Output 04/05/16 04/06/16 04/06/16 18:59 06:59 18:59 Intake Total 500 500 Balance 500 500 Intake: Oral 500 500 Other: # Voids 3 Active Medications: Current Medications Acetaminophen (Tylenol) 650 mg PO Q4HR PRN PRN Reason: Pain or Fever >101 Stop: 05/30/16 11:23 Last Admin: 04/02/16 21:45 Dose: 650 mg Al Hydrox/Mg Hydrox/Simethicone (Maalox) 30 ml PO Q6HR PRN PRN Reason: Constipation Stop: 05/30/16 11:23 Albuterol Sulfate (Albuterol 2.5mg/3ml Neb Ud) 2.5 mg IH Q2HR PRN PRN Reason: Shortness of Breath or Wheeze Stop: 05/30/16 11:23 Ipratropium [place] (Atrovent Neb 0.5mg/2.5ml) 0.5 mg IH Q2HR PRN PRN Reason: Shortness of Breath or Wheeze Stop: 05/30/16 11:23 Lisinopril (Zestril) 10 mg PO DAILY FABIANA Stop: 06/01/16 08:59 Last Admin: 04/06/16 08:12 Dose: 10 mg Ondansetron HCl (Zofran) 4 mg IV Q8H PRN PRN Reason: Nausea / Vomiting Stop: 05/30/16 11:23 Zolpidem Tartrate (Ambien) 10 mg PO HS PRN PRN Reason: Insomnia Stop: 05/30/16 11:23 Last Admin: 04/05/16 00:03 Dose: 10 mg General: Alert, Cooperative, No acute distress HEENT: Atraumatic, EOMI, Mucous membr. moist/pink Neck: Supple, +2 carotid pulse wo bruit Cardiovascular: Regular rate, Normal S1, Normal S2 Lungs: Clear to auscultation Abdomen: Bowel sounds, Soft Extremities: no Edema Neurological: Normal gait, Strength at 5/5 X4 ext, Sensation intact Skin: no Rash Psych/Mental Status: Mental status NL, Mood NL Assessment/Plan - Problem List Patient Problems: All Active Problems hypertension (Acute) proteinuria (Acute) thrombocytopenia (Acute) Laceration of finger (Active) S61.219A - Assessment Assessment: nephrotic range proteinuria thrombocytopenia (ITP) ess htn (+) RPR - Plan Plan: pt. has no peripheral edema, sob awaiting transfer to [facility]
[2016-04-06 12:31] LABS: % BASOPHILS 0.5 % (0.0-2.0); % EOSINOPHILS 2.2 % (0.0-5.0); % LYMPHOCYTES 30.1 % (20.0-50.0); % MONOCYTES 4.4 % (2.0-10.0); % NEUTROPHILS 62.8 % (40.0-80.0); MEAN CELL VOLUME 85.1 fl (80-99); MEAN CORPUSCULAR HEMOGLOBIN 29.4 pg (26.0-30.0); MEAN CORPUSCULAR HGB CONC 34.5 pg (28.0-36.0); MEAN PLATELET VOLUME 8.8 fl; NEUTROPHILE ABSOLUTE 6.7 Th/cmm (1.8-8.0); RED BLOOD COUNT 5.79 Mil/cmm (4.30-5.70); RED CELL DISTRIBUTION WIDTH 11.8 % (11.5-20.0); WHITE BLOOD COUNT 10.8 Th/cmm (4.8-10.8)
[2016-04-06 12:32] LABS: HEMATOCRIT 49.3 % (39.0-49.0); PLATELET COUNT 93 Th/cmm (150-400)
--- NOTE | 2016-04-27 20:20 | Discharge Summary ---
PRINCIPAL DIAGNOSES: 1. 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 2. Thrombocytopenia. 3. 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 4. Leukocytosis. 5. Positive RPR. 6. History of marijuana use. 7. 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 BRIEF STATEMENT FOR THE REASON FOR ADMISSION: A 20-year-old male presented to Emergency Room for evaluation of low platelet count and proteinuria. The patient was admitted. Please refer to my dictated medical H and P for further information. HOSPITAL COURSE: The patient was admitted to Med/Surg floor. Hematology/Oncology, Nephrology consultation requested. The patient was noted to have hypertension and antihypertensive medicine was started as well. The patient was followed by the agriculture consultant. Workup did initiate to reveal the patient was having 9 g of protein in the urine. Abdominal ultrasound was unremarkable for hypersplenism. Thrombocytopenia workup was also initiated. It was noted to have positive RPR, recommended to have further treatment to be given though ____ the patient had declined at the time to receive treatment for RPR. The patient did belong to [facility], which requested this patient is to be transferred to their network. The patient's thrombocytopenia was all the way to 21,000. The patient was given IV steroid, which was slowly improving. According to the telephone coin box collector, the patient may get benefit with the biopsy of the kidney and appropriate immunosuppressive therapy. It was recommended that the patient should get the biopsy. Since platelet was improving, it was decided that the patient can have further workup to be done at contracted hospital. The patient was transferred with continuation of same care where the patient will be followed by new primary care Freddy JOB# [id number]
== END 2016-04-07 14:00 | disposition short-term general hospital (02) | DRG 661 ==
LOC: ER 23:47 → MSI 03-31 00:25
PROVIDERS: ADMIT Internal Medicine; ATTEND Internal Medicine
DX: D69.3 Immune thrombocytopenic purpura (principal); E87.1 Hypo-osmolality and hyponatremia; I10 Essential (primary) hypertension; R80.9 Proteinuria, unspecified; F17.210 Nicotine dependence, cigarettes, uncomplicated; F12.90 Cannabis use, unspecified, uncomplicated; Z83.3 Family history of diabetes mellitus; N04.9 Nephrotic syndrome with unspecified morphologic changes
CPT/HCPCS: 36415-UA; 76700-TC; 80048-TC; 80053-TC; 80074-90; 81001-TC; 81050-TC; 82140-TC; 82248-TC; 82575-TC; 82607-90; 82746-90; 83874-90; 84156-TC; 84165-90; 84443-TC; 85007-TC; 85025-TC; 85027-TC; 85610-TC; 85652-TC; 86038-90; 86060-90; 86141-TC; 86255-90; 86334-90; 86592-TC; 86593-TC; 86703-TC; 86780-90; 86850-TC; 86900-TC; 86901-TC; 94760; J7040; Z7502; Z7610

== ENCOUNTER 2016-12-10 15:04 | Inpatient (IN) | payer MEDICAID ==
--- NOTE | 2016-12-10 15:17 | ED Physician Chart ---
ED Chief Complaint/HPI - Patient Information Date Seen:: 12/10/16 Time Seen:: 15:10 Chief Complaint:: Purpura History of Present Illness:: onset x one month of bruising easily, purpura; pt has hx of ITP; pt denies H/As , neck pain, C/P, SOB, Abd. Pain, cough, A/N/V/D/c, fever,chills, or urinary s/s Allergies:: Allergies Allergy/AdvReac Type Severity Reaction Status Date / Time No Known Allergies Allergy Verified 03/02/16 21:05 Historian:: Patient Review:: Nurse's Note Reviewed ED Review of Systems - Review of Systems General/Constitutional: Fever, No chills, No weight loss, No weakness, No diaphoresis, No edema, No loss of appetite Skin: Skin lesions, Rash, Bruising Head: No headache, No light-headedness Eyes: No loss of vision, No pain, No diplopia ENT: No earache, No nasal drainage, No sore throat, No tinnitus Neck: No neck pain, No swelling, No thyromegaly, No stiffness, No mass noted Cardio Vascular: No chest pain, No palpitations, No PND, No orthopnea, No edema Pulmonary: No SOB, No cough, No sputum, No wheezing GI: No nausea, No vomiting, No diarrhea, No pain, No melena, No hematochezia, No constipation, No hematemesis G/U: No dysuria, No frequency, No hematuria Musculoskeletal: No bone or joint pain, No back pain, No muscle pain Endocrine: No polyuria, No polydipsia Psychiatric: No prior psych history, No depression, No anxiety, No suicidal ideation Hematopoietic: No bruising, No lymphadenopathy Allergic/Immuno: No urticaria, No angioedema Neurological: No syncope, No focal symptoms, No weakness, No paresthesia, No headache, No seizure, No dizziness, No confusion, No vertigo ED Past Medical History - Past Medical History Obtainable: Yes Past Medical History: Other (ITP) Family History: HTN Social History: Non Smoker, No Alcohol, No Drug Use, Single Surgical History: None Psychiatricy History: None Medication: Reviewed Family Medical History - Family Member Mother History Unknown: Yes Living Status: Still Living Hx Family Coronary Artery Disease: No Hx Family Congestive Heart Failure: No Hx Family Hypertension: No Hx Family Stroke: No Hx Family Diabetes: Yes ED Physical Exam - Physical Examination General/Constitutional: Awake, Well-developed, well-nourished, Alert, No distress, GCS 15, Non-toxic appearing, Ambulatory Head: Atraumatic Eyes: Lids, conjuctiva normal, PERRL, EOMI Skin: Nl inspection, No rash, No ecchymosis, Well hydrated, No lymphadenopathy Other Skin comments:: Multiple areas of Ecchymosis/purpura ENMT: External ears, nose nl, Nasal exam nl, Lips, teeth, gums nl Neck: Nontender, Full ROM w/o pain, No JVD, No nuchal rigidity, No bruit, No mass, No stridor Respiratory: Nl effort/Exclusion, Clear to Auscultation, No Wheeze/Rhonchi/Rales Cardio Vascular: RRR, No murmur, gallop, rubs, NL S1 S2 GI: No tenderness/rebounding/guarding, No organomegaly, No hernia, Normal BS's, Nondistended, No mass/bruits, No McBurney tenderness : No CVA tenderness Extremities: No tenderness or effusion, Full ROM, normal strength in all extremities, No edema, Normal digits & nails Neuro/Psych: Alert/oriented, DTR's symmetric, Normal sensory exam, Normal motor strength, Judgement/insight normal, Mood normal, Normal gait, No focal deficits Misc: Normal back, No paraspinal tenderness ED Labs/Radiology/EKG Results - Lab Results Results: Platelets: 4 - EKG Interpretations Rate & Rhythm: NSR Comments:: non-specific st-t changes ED Septic Shock - . Is Septic Shock (SBP<90, OR Lactate>4 mmol\L) present?: No ED Reassessment (Disposition) - Reassessment Reassessment Condition:: Improved - Diagnosis Diagnosis:: Ecchymosis; Purpura; HTN; ITP - Aftercare/Follow up Instructions Aftercare/Follow-Up Instructions:: Counseled pt regarding lab results/diagnosis & need follow up, Counseled pt & family regarding lab results/diagnosis & need follow up - Patient Disposition Discharge/Transfer:: Acute Care w/in this hosp Accepting Physician:: Dr. Dickson Time Called:: 1800 Time Responded:: 18:00 Admitted to:: Med/Surg Spoke to:: Dr. Dickson Admitting Medical Physician:: Dr. Dickson Condition at Disposition:: Stable, Improved
[2016-12-10 15:32] LABS: HEMOGLOBIN 15.2 gm/dL (12-16); MEAN CELL VOLUME 85.1 fl (80-99); MEAN CORPUSCULAR HEMOGLOBIN 29.7 pg (26.0-30.0); MEAN CORPUSCULAR HGB CONC 34.9 pg (28.0-36.0); MEAN PLATELET VOLUME 5.3 fl; RED BLOOD COUNT 5.12 Mil/cmm (4.30-5.70); RED CELL DISTRIBUTION WIDTH 12.6 % (11.5-20.0); WHITE BLOOD COUNT 9.8 Th/cmm (4.8-10.8)
[2016-12-10 15:46] LABS: INR 0.95 (0.5-1.4); PROTHROMBIN TIME (TEST) 9.9 SECONDS (9.5-11.5)
[2016-12-10 16:16] LABS: PLATELET COUNT 4 Th/cmm (150-400)
[2016-12-10 16:19] LABS: ALB/GLOB RATIO 1.7 (1.0-1.8); ALKALINE PHOSPHATASE 76 U/L (34-104); ANION GAP 8.8 (7.0-16.0); BILIRUBIN,TOTAL 0.3 mg/dL (0.3-1.0); BUN - UREA NITROGEN 24 mg/dL (7-25); CALCIUM SERUM 8.9 mg/dL (8.6-10.3); CARBON DIOXIDE 25.8 mEq/L (21.0-31.0); CHLORIDE 104 mEq/L (98-107); CHOLESTEROL 205 mg/dL (<200); GLUCOSE 125 mg/dL (70-105); POTASSIUM SERUM 3.6 mEq/L (3.5-5.1); SGOT 25 U/L (13-39); SGPT/ALT 21 U/L (7-52); SODIUM SERUM 135 mEq/L (136-145); TRIGLYCERIDES 430 mg/dL (<150)
[2016-12-10] MEDS ORDERED: methylPREDNISolone SS 40 mg Vial IVP SCH (20:27)
[2016-12-11] MEDS ORDERED: Dexamethasone Sodium Phos 10 mg/mL PF Vial ONE (06:15)
[2016-12-11] MEDS: Dexamethasone Sodium Phos 4 mg/mL Vial IVP SCH ×2 (06:18→08:34)
[2016-12-11 07:06] LABS: PLATELET COUNT 12 Th/cmm (150-400)
[2016-12-11 07:20] LABS: WHITE BLOOD COUNT 11.7 Th/cmm (4.8-10.8)
[2016-12-11 07:22] LABS: RED BLOOD COUNT 5.01 Mil/cmm (4.30-5.70)
[2016-12-11 07:23] LABS: HEMATOCRIT 42.9 % (41.0-60); HEMOGLOBIN 14.9 gm/dL (12-16); MEAN CELL VOLUME 85.5 fl (80-99); MEAN CORPUSCULAR HEMOGLOBIN 29.6 pg (26.0-30.0)
[2016-12-11 07:24] LABS: BAND NEUTROPHILE 4 % (0-10); MEAN CORPUSCULAR HGB CONC 34.7 pg (28.0-36.0); NEUTROPHILS 82 % (40-80); RED CELL DISTRIBUTION WIDTH 12.2 % (11.5-20.0); TOTAL CELLS COUNTED 100
[2016-12-11 07:25] LABS: PLATELET ESTIMATE DECREASED PLATELETS (NORMAL)
--- NOTE | 2016-12-11 17:48 | Consultation ---
DATE OF CONSULTATION: 12/11/2016 REFERRING PHYSICIAN: Leia Dickson M.D. REASON FOR CONSULTATION: Severe thrombocytopenia. HISTORY OF PRESENT ILLNESS: The patient is a 21-year-old male who is known to me from March 2016. He was admitted because of easy bruising and found to have platelet count of 4. The patient noticed that that he has spontaneous bruising on both arms therefore he presented to the hospital. After his diagnosis last March, he was sent home on prednisone and followed ____ with the driller operator and then he did not continue to follow up after that. PAST MEDICAL HISTORY: ITP. FAMILY HISTORY: Hypertension. SOCIAL HISTORY: No smoking or drinking. PAST SURGICAL HISTORY: None. PHYSICAL EXAMINATION: GENERAL: Awake, alert, oriented, not in distress. VITAL SIGNS: Stable. HEENT: Atraumatic. NECK: Supple. CHEST: Petechiae on the chest wall. ABDOMEN: Soft. No organomegaly. EXTREMITIES: Few petechiae on the lower extremities, left more than right. LABORATORY DATA: Platelet count 4 from admission, white count 9.8, hemoglobin 15. Coagulation panel normal. Chemistries normal. The patient had abdominal ultrasound during his previous hospital stay and it was reported negative. He also had JOHANNA and double stranded DNA, both were negative. B12 and folate level were normal. ASSESSMENT: Idiopathic thrombocytopenic purpura, acute. The patient will be treated with intravenous high dose Decadron for 4 days and hopefully will have response and continue as an outpatient with prednisone. I will obtain HIV test. Thank you, Dr. Dickson for the opportunity to participate in the care of this interesting case with you. JOB# [id number]
--- NOTE | 2016-12-11 21:46 | History & Physical ---
ADMIT DATE: 12/11/2016 CHIEF COMPLAINT: Multiple ecchymoses over the upper extremities. HISTORY OF PRESENT ILLNESS: The patient is a 21-year-old male with long history of ITP, presented to the Emergency Room with multiple ecchymosis of the upper shoulder for a few days' duration, evaluated by the ER physician. Initial workup significant for severe thrombocytopenia, platelet was 4. The patient was admitted to the hospital. Hematology consultation obtained. The patient started on steroids. PAST MEDICAL HISTORY: ITP. PAST SURGICAL HISTORY: No recent surgery. ALLERGIES: None. MEDICATIONS: Follow admission reconciliation. SOCIAL HISTORY: No smoking, alcohol, or drugs. FAMILY HISTORY: Noncontributory. REVIEW OF SYSTEMS: IMMUNO SYSTEM: No history of chronic renal disorder. CARDIOVASCULAR SYSTEM: No coronary artery disease. ENDOCRINE SYSTEM: No diabetes or thyroid problem. GASTROINTESTINAL SYSTEM: No upper or lower gastrointestinal bleed. NEUROLOGICAL SYSTEM: No seizure disorder. SKELETOMUSCULAR SYSTEM: No muscular dystrophy. HEMATOLOGIC SYSTEM: History of ITP. PHYSICAL EXAMINATION: GENERAL: He is awake, alert, and oriented. VITAL SIGNS: Temperature ____, heart rate 83, and blood pressure 148/85. HEENT: Normocephalic. Pupils are reacting equally to light and accommodation. Sclerae clear. NECK: Supple. Negative for lymphadenopathy, JVD, or bruit. CHEST: Bilateral normal. No rhonchi or wheezing. HEART: S1 and S2 normal. No rhonchi. ABDOMEN: Soft. Bowel sounds positive. EXTREMITIES: No edema. BACK: ____. SKIN: Significant for multiple ecchymoses of the upper shoulders. ASSESSMENT: Idiopathic thrombocytopenic purpura. PLAN: The patient in the hospital under Dr. Dickson's service. We will start him on regular diet and IV Solu-Medrol. Dr. Arguello consulted on the case. The patient is a Full Code. JOB# [id number]
[2016-12-12 04:38] LABS: HEMOGLOBIN 15.3 gm/dL (12-16)
[2016-12-12 04:43] LABS: MEAN CELL VOLUME 85.3 fl (80-99); MEAN CORPUSCULAR HEMOGLOBIN 29.6 pg (26.0-30.0); MEAN CORPUSCULAR HGB CONC 34.7 pg (28.0-36.0); RED BLOOD COUNT 5.16 Mil/cmm (4.30-5.70); RED CELL DISTRIBUTION WIDTH 12.5 % (11.5-20.0)
[2016-12-12 05:07] LABS: MEAN PLATELET VOLUME 8.1 fl; PLATELET COUNT 17 Th/cmm (150-400)
[2016-12-12 06:02] LABS: BAND NEUTROPHILE 1 % (0-10); NEUTROPHILS 82 % (40-80); TOTAL CELLS COUNTED 100
[2016-12-12 06:03] LABS: EOSINOPHIL 1 % (0-5); PLATELET ESTIMATE DECREASED PLATELETS (NORMAL); PLATELET MORPHOLOGY PLATELET CLUMPS SEEN (NORMAL)
[2016-12-12 06:22] LABS: WHITE BLOOD COUNT 21.5 Th/cmm (4.8-10.8)
[2016-12-12] MEDS: Dexamethasone Sodium Phos 10 mg/mL PF Vial IVP SCH (08:49)
--- NOTE | 2016-12-12 16:27 | Internal Medicine Prog Note ---
Internal Medicine Subjective - Subjective Service Date: 12/12/16 Patient seen and examined:: without staff Patient is:: awake, in bed Per staff patient has:: no adverse event Internal Medicine Objective - Results Result Diagrams: 12/12/16 04:24 12/10/16 15:26 Recent Labs: Laboratory Last Values WBC 21.5 Th/cmm (4.8-10.8) H* D 12/12/16 04:24 RBC 5.16 Mil/cmm (4.30-5.70) 12/12/16 04:24 Hgb 15.3 gm/dL (12-16) 12/12/16 04:24 Hct 44.0 % (41.0-60) 12/12/16 04:24 MCV 85.3 fl (80-99) 12/12/16 04:24 MCH 29.6 pg (26.0-30.0) 12/12/16 04:24 MCHC Differential 34.7 pg (28.0-36.0) 12/12/16 04:24 RDW 12.5 % (11.5-20.0) 12/12/16 04:24 Plt Count 17 Th/cmm (150-400) L* 12/12/16 04:24 MPV 8.1 fl 12/12/16 04:24 Band Neutrophils % 1 % (0-10) 12/12/16 04:24 Neutrophils (Manual) 82 % (40-80) H 12/12/16 04:24 Lymphocytes 11 % (20-50) L 12/12/16 04:24 Monocytes 5 % (2-10) 12/12/16 04:24 Eosinophils 1 % (0-5) 12/12/16 04:24 Platelet Estimate DECREASED PLATELETS (NORMAL) 12/12/16 04:24 Platelet Morphology PLATELET CLUMPS SEEN (NORMAL) 12/12/16 04:24 PT 9.9 SECONDS (9.5-11.5) 12/10/16 15:26 INR 0.95 (0.5-1.4) 12/10/16 15:26 Sodium 135 mEq/L (136-145) L 12/10/16 15:26 Potassium 3.6 mEq/L (3.5-5.1) 12/10/16 15:26 Chloride 104 mEq/L (98-107) 12/10/16 15:26 Carbon Dioxide 25.8 mEq/L (21.0-31.0) 12/10/16 15:26 Anion Gap 8.8 (7.0-16.0) 12/10/16 15:26 BUN 24 mg/dL (7-25) 12/10/16 15:26 Creatinine 1.0 mg/dL (0.7-1.3) 12/10/16 15:26 Est GFR ( Amer) > 60.0 ml/min (>90) 12/10/16 15:26 Est GFR (Non-Af Amer) > 60.0 ml/min 12/10/16 15:26 BUN/Creatinine Ratio 24.0 12/10/16 15:26 Glucose 125 mg/dL (70-105) H 12/10/16 15:26 Calcium 8.9 mg/dL (8.6-10.3) 12/10/16 15:26 Total Bilirubin 0.3 mg/dL (0.3-1.0) 12/10/16 15:26 AST 25 U/L (13-39) 12/10/16 15:26 ALT 21 U/L (7-52) 12/10/16 15:26 Alkaline Phosphatase 76 U/L (34-104) 12/10/16 15:26 Creatine Kinase 175 U/L (30-223) 12/10/16 15:26 Troponin I < 0.01 ng/mL (0.01-0.05) L 12/10/16 15:26 B-Natriuretic Peptide 35.7 pg/mL (5.0-100.0) 12/10/16 15:26 Total Protein 6.0 gm/dL (6.0-8.3) 12/10/16 15:26 Albumin 3.8 gm/dL (4.2-5.5) L 12/10/16 15:26 Globulin 2.2 gm/dL 12/10/16 15:26 Albumin/Globulin Ratio 1.7 (1.0-1.8) 12/10/16 15:26 Triglycerides 430 mg/dL (<150) H 12/10/16 15:26 Cholesterol 205 mg/dL (<200) H 12/10/16 15:26 LDL Cholesterol Direct 139 mg/dL (75-193) 12/10/16 15:26 HDL Cholesterol 53 mg/dL (23-92) 12/10/16 15:26 HIV 1&2 Antibody Screen NEGATIVE (NEG) 12/11/16 05:35 Blood Type O POSITIVE 12/10/16 17:18 Antibody Screen NEGATIVE 12/10/16 17:18 - Physical Exam Vitals and I&O: Vital Signs Temp 97.4 F 12/12/16 12:00 Pulse 82 12/12/16 12:00 Resp 19 12/12/16 12:00 BP 137/90 12/12/16 12:00 Pulse Ox 98 12/12/16 12:00 Intake & Output 12/11/16 12/12/16 12/12/16 18:59 06:59 18:59 Intake Total 1600 1000 Balance 1600 1000 Weight (lbs) 85.729 kg 85.786 kg Intake: Oral 1600 1000 Other: # Voids 4 # Bowel Movements 0 Active Medications: Current Medications Amlodipine Besylate (Norvasc) 10 mg PO DAILY FABIANA Stop: 02/09/17 16:29 Last Admin: 12/12/16 08:43 Dose: 10 mg Dexamethasone Sodium Phosphate (Decadron) 40 mg IVP DAILY FABIANA Stop: 02/10/17 08:59 Last Admin: 12/12/16 08:49 Dose: 40 mg Famotidine (Pepcid) 20 mg PO BID FABIANA Stop: 02/09/17 08:59 Last Admin: 12/12/16 08:43 Dose: 20 mg Temazepam (Restoril) 15 mg PO HS PRN; Protocol PRN Reason: Insomnia Stop: 02/08/17 20:30 General: alert HEENT: NC/AT, PERRLA, EOMI Neck: No JVD, No thyromegaly Lungs: CTAB Cardiovascular: RRR, Normal S1, Normal S2, without murmur Abdomen: soft, non-tender, non-distended Extremities: clear Neurological: no change - Procedures Procedures: Procedures Procedure Code Date BLOOD TRANSFUSION SERVICE 28284 12/10/16 TRANSFUSE NONAUT PLATELETS IN PERIPH VEIN, PERC 89670Z8 12/10/16 Internal Medicine Assmt/Plan - Assessment Assessment: 1.ITP. 2.THROMBOCYTOPENIA. 3.HTN. - Plan Plan: CONTINUE ON CURRENT MEDICATION AND DIET.
[2016-12-13 05:41] LABS: HEMATOCRIT 46.3 % (41.0-60); HEMOGLOBIN 15.6 gm/dL (12-16); MEAN CELL VOLUME 87.1 fl (80-99); MEAN CORPUSCULAR HEMOGLOBIN 29.3 pg (26.0-30.0); MEAN CORPUSCULAR HGB CONC 33.7 pg (28.0-36.0); MEAN PLATELET VOLUME 7.1 fl; RED BLOOD COUNT 5.32 Mil/cmm (4.30-5.70); RED CELL DISTRIBUTION WIDTH 12.8 % (11.5-20.0)
[2016-12-13 06:52] LABS: WHITE BLOOD COUNT 19.8 Th/cmm (4.8-10.8)
[2016-12-13 08:30] LABS: NEUTROPHILS 94 % (40-80); PLATELET COUNT 99 Th/cmm (150-400); PLATELET ESTIMATE SLIGHT DECREASED (NORMAL); TOTAL CELLS COUNTED 100
[2016-12-13] MEDS: Dexamethasone Sodium Phos 10 mg/mL PF Vial IVP SCH (08:37)
--- NOTE | 2016-12-13 12:51 | General Progress Note ---
Subjective - Review of Systems Service Date: 12/13/16 Subjective: no bleeding Objective - Results Result Diagrams: 12/13/16 04:46 12/10/16 15:26 Recent Labs: Laboratory Last Values WBC 19.8 Th/cmm (4.8-10.8) H 12/13/16 04:46 RBC 5.32 Mil/cmm (4.30-5.70) 12/13/16 04:46 Hgb 15.6 gm/dL (12-16) 12/13/16 04:46 Hct 46.3 % (41.0-60) 12/13/16 04:46 MCV 87.1 fl (80-99) 12/13/16 04:46 MCH 29.3 pg (26.0-30.0) 12/13/16 04:46 MCHC Differential 33.7 pg (28.0-36.0) 12/13/16 04:46 RDW 12.8 % (11.5-20.0) 12/13/16 04:46 Plt Count 99 Th/cmm (150-400) L D 12/13/16 04:46 MPV 7.1 fl 12/13/16 04:46 Band Neutrophils % 1 % (0-10) 12/12/16 04:24 Neutrophils (Manual) 94 % (40-80) H 12/13/16 04:46 Lymphocytes 6 % (20-50) L 12/13/16 04:46 Monocytes 5 % (2-10) 12/12/16 04:24 Eosinophils 1 % (0-5) 12/12/16 04:24 Platelet Estimate SLIGHT DECREASED (NORMAL) 12/13/16 04:46 Platelet Morphology PLATELET CLUMPS SEEN (NORMAL) 12/12/16 04:24 PT 9.9 SECONDS (9.5-11.5) 12/10/16 15:26 INR 0.95 (0.5-1.4) 12/10/16 15:26 Sodium 135 mEq/L (136-145) L 12/10/16 15:26 Potassium 3.6 mEq/L (3.5-5.1) 12/10/16 15:26 Chloride 104 mEq/L (98-107) 12/10/16 15:26 Carbon Dioxide 25.8 mEq/L (21.0-31.0) 12/10/16 15:26 Anion Gap 8.8 (7.0-16.0) 12/10/16 15:26 BUN 24 mg/dL (7-25) 12/10/16 15:26 Creatinine 1.0 mg/dL (0.7-1.3) 12/10/16 15:26 Est GFR ( Amer) > 60.0 ml/min (>90) 12/10/16 15:26 Est GFR (Non-Af Amer) > 60.0 ml/min 12/10/16 15:26 BUN/Creatinine Ratio 24.0 12/10/16 15:26 Glucose 125 mg/dL (70-105) H 12/10/16 15:26 Calcium 8.9 mg/dL (8.6-10.3) 12/10/16 15:26 Total Bilirubin 0.3 mg/dL (0.3-1.0) 12/10/16 15:26 AST 25 U/L (13-39) 12/10/16 15:26 ALT 21 U/L (7-52) 12/10/16 15:26 Alkaline Phosphatase 76 U/L (34-104) 12/10/16 15:26 Creatine Kinase 175 U/L (30-223) 12/10/16 15:26 Troponin I < 0.01 ng/mL (0.01-0.05) L 12/10/16 15:26 B-Natriuretic Peptide 35.7 pg/mL (5.0-100.0) 12/10/16 15:26 Total Protein 6.0 gm/dL (6.0-8.3) 12/10/16 15:26 Albumin 3.8 gm/dL (4.2-5.5) L 12/10/16 15:26 Globulin 2.2 gm/dL 12/10/16 15:26 Albumin/Globulin Ratio 1.7 (1.0-1.8) 12/10/16 15:26 Triglycerides 430 mg/dL (<150) H 12/10/16 15:26 Cholesterol 205 mg/dL (<200) H 12/10/16 15:26 LDL Cholesterol Direct 139 mg/dL (75-193) 12/10/16 15:26 HDL Cholesterol 53 mg/dL (23-92) 12/10/16 15:26 HIV 1&2 Antibody Screen NEGATIVE (NEG) 12/11/16 05:35 Blood Type O POSITIVE 12/10/16 17:18 Antibody Screen NEGATIVE 12/10/16 17:18 - Physical Exam Vitals and I&O: Vital Signs Temp 97.9 F 12/13/16 12:00 Pulse 69 12/13/16 12:00 Resp 18 12/13/16 12:00 BP 138/90 12/13/16 12:00 Pulse Ox 98 12/13/16 12:00 Intake & Output 12/12/16 12/13/16 12/13/16 18:59 06:59 18:59 Intake Total 1600 Balance 1600 Weight (lbs) 85.786 kg 83.178 kg Intake: Oral 1600 Other: # Voids 4 Active Medications: Current Medications Amlodipine Besylate (Norvasc) 10 mg PO DAILY FABIANA Stop: 02/09/17 16:29 Last Admin: 12/13/16 08:37 Dose: 10 mg Dexamethasone Sodium Phosphate (Decadron) 40 mg IVP DAILY FABIANA Stop: 02/10/17 08:59 Last Admin: 12/13/16 08:37 Dose: 40 mg Famotidine (Pepcid) 20 mg PO BID FABIANA Stop: 02/09/17 08:59 Last Admin: 12/13/16 08:38 Dose: 20 mg Temazepam (Restoril) 15 mg PO HS PRN; Protocol PRN Reason: Insomnia Stop: 02/08/17 20:30 - Procedures Procedures: Procedures Procedure Code Date BLOOD TRANSFUSION SERVICE 31403 12/10/16 TRANSFUSE NONAUT PLATELETS IN PERIPH VEIN, PERC 34663F8 12/10/16 Assessment/Plan - Problem List Patient Problems: All Active Problems CHRONIC IMMUNE THROMBOCYTOPENIA (Acute) Laceration of finger (Active) S61.219A hypertension (Acute) proteinuria (Acute) thrombocytopenia (Acute) - Assessment Assessment: * Acute ITP, responsive to steroids. Continue on oral prednisone and follow as outpatient
== END 2016-12-13 16:10 | disposition home or self-care (01) | DRG 661 ==
LOC: ER 15:04 → MSI 18:07
PROVIDERS: ADMIT Family Medicine; ATTEND Family Medicine
PROC: 30233R1 Transfusion of Nonautologous Platelets into Peripheral Vein, Percutaneous Approach (ICD-10-PCS; principal; 2016-12-10)
DX: D69.3 Immune thrombocytopenic purpura (principal); I10 Essential (primary) hypertension; R58 Hemorrhage, not elsewhere classified; S40.022A Contusion of left upper arm, initial encounter; S40.021A Contusion of right upper arm, initial encounter; D69.6 Thrombocytopenia, unspecified; Z82.49 Family history of ischemic heart disease and other diseases of the circulatory system; Z83.3 Family history of diabetes mellitus
CPT/HCPCS: 36415-UA; 80053-TC; 80061-TC; 82550-TC; 83880-TC; 84484-TC; 85007-TC; 85027-TC; 85610-TC; 86703-TC; 86850-TC; 86900-TC; 86901-TC; 93005; 94760; 96374; J2930; P9035; Z7610